=== PATIENT | female | born 1950 | race Caucasian/White ===

== ENCOUNTER → 2016-12-10 | Outpatient (CLI) | payer MEDICARE, MEDICAID | END | disposition home or self-care (01) | LOC: RAD.S 08:56 | DX: R10.9 Unspecified abdominal pain (principal); K76.0 Fatty (change of) liver, not elsewhere classified; Z90.49 Acquired absence of other specified parts of digestive tract ==

== ENCOUNTER 2017-02-20 05:39 | Emergency (ER) | payer MEDICARE, MEDICAID ==
--- NOTE | 2017-02-20 14:03 | ER ---
ADMIT: 02/20/2017 RM/LOC: ER [facility] MR#: [id number] [facility] [address] [place], [place] [address] [address] [address] Emergency Room Report SEX: F AGE: 66 : 1950 DATE: 02/20/2017 ADDENDUM: The patient is a 66-year-old female, who came in complaining of some headache and some dizzy symptoms. These symptoms have actually been going on for about 6 months now, but were little worse this morning, so she wanted to come in to get checked out. The patient is Mongolian speaking, but has a family member here who is able to interpret for. Family member states that she has been seen by her primary care physician for this and by an mathematician research, but they did not know the name of the mathematician research. There was some thought this may be vertigo. While in the ER, she did have a CT head done which shows nothing acute. Additionally, she had a CBC, BMP, and troponin done. Her troponin was normal. BMP was unremarkable and her hemoglobin was 10.7. The patient's vital signs remained stable while she was in the ER. I discussed the results with the patient and her family member and said I did not believe anything acute was causing her symptoms that I was able to find and at this point, I believe she is stable to be discharged home. They did try contacting Dr. Brown's office, but he was not in yet. I did leave a message with his nurse to notify the patient was here and the testing that we had done with the results. DIAGNOSES: 1. Headache. 2. Dizziness. Josias Servin MD/ bentley JOB #: [id number] CC: Miguelito Rueda MD, Attending Physician Ankur Brown MD, Family Physician
== END 2017-02-20 08:25 | disposition home or self-care (01) ==
LOC: ER 05:39
DX: R51 Headache (principal); R42 Dizziness and giddiness; I10 Essential (primary) hypertension; E11.9 Type 2 diabetes mellitus without complications; E78.5 Hyperlipidemia, unspecified; J45.909 Unspecified asthma, uncomplicated; K21.9 Gastro-esophageal reflux disease without esophagitis; Z95.1 Presence of aortocoronary bypass graft; Z90.49 Acquired absence of other specified parts of digestive tract; Z79.4 Long term (current) use of insulin; Z79.899 Other long term (current) drug therapy

== ENCOUNTER 2017-02-21 21:58 | Emergency (ER) | payer MEDICARE, MEDICAID ==
--- NOTE | 2017-02-22 13:05 | ER ---
ADMIT: 02/21/2017 RM/LOC: ER [facility] MR#: [id number] [address] [place] [address] Emergency Room Report SEX: F AGE: 66 : 1950 DATE: 02/21/2017 HISTORY OF PRESENT ILLNESS: The patient is a 66-year-old female with past medical history of diabetes, asthma, hypertension, coronary artery disease, and left hand carpal tunnel, came to the ER with chief complaint of numbness of the left hand on the palmar area for 10 minutes. The patient also complains of chronic back pain. The patient denies any chest pain, shortness of breath, headaches, visual changes, or weakness in any extremities. The patient denies any problem with the balance. The patient states the symptoms are similar to the previous carpal tunnel symptoms she had, for which she already got surgery sometime ago. The patient denies any recent trauma. The patient denies any change in the neck pain and states that she has chronic neck pain. The patient received Grover for neck pain. EKG was negative for any acute ST or T changes or Q-waves or arrhythmia. PHYSICAL EXAMINATION: HEAD and NECK: Noncontributory. CHEST: Clear bilaterally. HEART: Normal heart sounds without gallops or murmurs. ABDOMEN: Soft. NEUROLOGICAL: Motor, sensory, cranial nerve, and cerebellar tests are all normal. Tinel sign is negative. The patient's symptoms and signs are not in favor of the stroke, and radicular nerve entrapment versus other causes versus carpal tunnel syndrome and chronic neck pain are at the top of our differentials. The patient is stable, in no pain or distress at the moment. The patient can be discharged to home with return precautions, advised to avoid repetitive actions with left hand and follow up with the primary doctor as needed. Kenny Saeed MD/ bentley JOB #: [id number] CC: Kem Suarez MD, Attending Physician Ankur Brown MD, Family Physician
== END 2017-02-22 00:35 | disposition home or self-care (01) ==
LOC: ER 21:58
DX: M54.2 Cervicalgia (principal); G89.29 Other chronic pain; R20.0 Anesthesia of skin; I10 Essential (primary) hypertension; E11.9 Type 2 diabetes mellitus without complications; I25.10 Atherosclerotic heart disease of native coronary artery without angina pectoris; J45.909 Unspecified asthma, uncomplicated; Z95.1 Presence of aortocoronary bypass graft; Z79.4 Long term (current) use of insulin; Z79.899 Other long term (current) drug therapy; Z79.84 Long term (current) use of oral hypoglycemic drugs